=== PATIENT | female | born 1985 | race Caucasian/White ===

== ENCOUNTER → 2016-12-13 | Outpatient (REF) | LOC: WSOH 10:56 | DX: Z11.1 Encounter for screening for respiratory tuberculosis (principal) ==

== ENCOUNTER → 2017-08-11 | Outpatient (CLI) | payer OTHER | LOC: COL.RAD 07:58 | DX: N97.9 Female infertility, unspecified (principal); Z53.9 Procedure and treatment not carried out, unspecified reason | CPT/HCPCS: Q9967 ==